=== PATIENT | male | born 1960 | race African-American/Black ===

== ENCOUNTER → 2019-06-09 | Outpatient (CLI) | payer OTHER ==
[~2019-06-09] MED LIST: AMLO10TA8 PO; ASPI-612 PO; CETI10TA16 PO; CHOL10003 PO; DIPH50CA PO; LISI-130 PO; MULT1TAB52 PO; OMEG1CAP6 PO; TRAZ-118 PO
--- NOTE | 2019-06-12 12:46 | RAD ---
Ultrasound-guided prostate fiducial marker placement 06.09.19 Discussion: The risks and benefits of the procedure were discussed the patient. Informed consent was obtained. Timeout procedure was performed. Limited transrectal ultrasound evaluation of the prostate was performed for planning purposes only. 3 transrectal, fiducial markers were placed within the prostate under direct ultrasound guidance. Transducer was removed. No immediate complications were identified. Reference ultrasound images were saved medical record IMPRESSION: Ultrasound-guided transrectal prostatic fiducial marker placement
== END | disposition home or self-care (01) ==
LOC: US 08:12
PROVIDERS: ATTEND Radiology Radiation Oncology
DX: C61 Malignant neoplasm of prostate (principal); I10 Essential (primary) hypertension; G47.30 Sleep apnea, unspecified
CPT/HCPCS: 55876; 77387